=== PATIENT | male | born 1960 | race Caucasian/White ===

== ENCOUNTER 2017-07-21 01:22 | Emergency (ER) | payer OTHER ==
[~2017-07-21] VITALS: Ht 180.3 cm; Wt 99.1 kg
[~2017-07-21 01:22] MED LIST: AZITHROMYCIN250 MG1 PO; CIPRO500 MG PO; COREG25 M1 PO; DELTASONE20 M1 PO; ENALAPRIL MALEA10 MG PO; FLOMAX0.4 MG PO; KLONOPIN1 MG PO; PERCOCET 5/31 TABLET PO; ROXICODONE5 MG PO; VENTOLIN HFA18 GM IH; XANAX1 MG PO
[2017-07-21 01:53] LABS: HEMATOCRIT 45.3 % (38.0-50.0); MCH 29.5 PG (29.0-34.0); MCHC 33.8 G/DL (30.0-36.0); MCV 87.5 FL (86-99); MEAN PLAT.VOLUME 10.1 uM^3 (9.0-12.4); PLATELET COUNT 294 K/uL (156-360); RBC DIS.WIDTH-CV 13.6 % (11.8-14.6); RBC DIS.WIDTH-SD 43.7 % (39-53); RED BLOOD COUNT 5.18 M/uL (4.00-5.50); WHITE BLOOD COUNT 12.4 K/uL (4.1-10.2)
[2017-07-21 01:57] LABS: ADD MIUA? YES; BILIRUBIN NEGATIVE; BLOOD NEGATIVE; COLOR YELLOW ((YELLOW)); GLUCOSE (STRIP) >=500; KETONES NEGATIVE; LEUKOCYTES NEGATIVE; NITRITE NEGATIVE; PROTEIN (STRIP) NEGATIVE; SPECIFIC GRAVITY 1.023 (1.000-1.030); UROBILINOGEN 0.2 MG/DL (0.2-1.0)
[2017-07-21 02:03] LABS: CHLORIDE 106 mEq/L (99-109); SODIUM 140 mEq/L (136-147)
[2017-07-21 02:05] LABS: GLUCOSE 104 mg/dL (70-99)
[2017-07-21 02:07] LABS: ANION GAP 15 MEQ/L (2-14)
[2017-07-21 02:09] LABS: GFR ESTIMATE (CALCULATED) 51 mL/min/
[2017-07-21 02:10] LABS: UREA NITROGEN (BUN) 20 mg/dL (9-23)
[2017-07-21 02:23] LABS: BACTERIA RARE /HPF; EPITHELIAL CELLS NONE SEEN /HPF; MUCUS NONE SEEN /LPF; RED BLOOD CELLS 0-5 /HPF (0-5); UCUL ADDED? NO; WHITE BLOOD CELLS 0-5 /HPF (0-5)
[2017-07-21] MEDS ORDERED: ZOFRAN ODT4 MG PO (03:31)
[2017-07-21] MEDS ORDERED: PERCOCET 5/31 TABLET PO (03:31)
[2017-07-21 03:47] VITALS: BP 144/86
== END 2017-07-21 03:48 | disposition home or self-care (01) ==
LOC: EME 01:22 → EXP 01:22
DX: N13.2 Hydronephrosis with renal and ureteral calculous obstruction (principal); I10 Essential (primary) hypertension; Z85.46 Personal history of malignant neoplasm of prostate; Z90.79 Acquired absence of other genital organ(s); Z95.0 Presence of cardiac pacemaker; Z87.442 Personal history of urinary calculi
CPT/HCPCS: 74176; 80048; 81003; 85027; 99281; 99284; J1885; J2270; J2405; J7030